=== PATIENT | female | born 1965 | race Caucasian/White ===

== ENCOUNTER 2017-01-28 05:24 | Day surgery (SDC) | payer BC, OTHER ==
[~2017-01-28] VITALS: Ht 160 cm; Wt 81.0 kg
[~2017-01-28 05:24] MED LIST: ASPI-496 PO; CALC600T4 PO; CHOL2000 PO; LEVO50TA PO; OMEG500C PO; SIMV20TA3 PO; TURM500C7 PO; UBID100C24 PO
[2017-01-28] MEDS ORDERED: LACTATED RINGERS 1,000 ML IV SCH (06:03)
[2017-01-28 06:05] VITALS: BP 124/83
[2017-01-28] MEDS ORDERED: BUPIVACAINE/PF-EPI 0.5% 1:200K ONE (06:22)
[2017-01-28] MEDS ORDERED: MIDAZOLAM 1 MG/ML, 2ML ONE (07:03)
[2017-01-28] MEDS ORDERED: FENTANYL PF 100 MCG/2ML ONE (07:03)
[2017-01-28] MEDS ORDERED: CEFAZOLIN 1,000 MG ONE (07:25)
[2017-01-28] MEDS ORDERED: ONDANSETRON 2MG/ML, 2ML ONE (07:25)
[2017-01-28] MEDS ORDERED: PROPOFOL 10 MG/ML, 20ML ONE (07:25)
[2017-01-28] MEDS ORDERED: KETOROLAC 30 MG/1 ML ONE (07:25)
[2017-01-28] MEDS ORDERED: LIDOCAINE/PF 1%, 30ML ONE (07:40)
[2017-01-28] MEDS ORDERED: ALBUTEROL SULFATE 2.5 MG/3 ML NPPB PRN (08:00)
[2017-01-28] MEDS ORDERED: ACETAMINOPHEN 325 MG TABLET PO PRN (08:00)
[2017-01-28] MEDS ORDERED: hydrALAzine 20 MG/ML, 1ML IV PRN (08:00)
[2017-01-28] MEDS ORDERED: OXYcodone 5 MG/5 ML ORAL.SOL UDC PO PRN (08:00)
[2017-01-28] MEDS ORDERED: ONDANSETRON 2MG/ML, 2ML IVPush PRN (08:00)
[2017-01-28] MEDS ORDERED: METOPROLOL 1 MG/ML, 5ML IV PRN (08:00)
[2017-01-28] MEDS ORDERED: PROMETHAZINE 25 MG/ML, 1ML IV PRN (08:00)
[2017-01-28] MEDS ORDERED: MIDAZOLAM 1 MG/ML, 2ML IV PRN (08:00)
[2017-01-28] MEDS ORDERED: HYDROcodone/APAP 7.5-325MG/15ML UDC PO PRN (08:00)
[2017-01-28] MEDS ORDERED: FENTANYL PF 100 MCG/2ML IV PRN (08:00)
[2017-01-28] MEDS ORDERED: EPHEDRINE 50 MG/ML, 1ML IVPush PRN (08:00)
[2017-01-28] MEDS ORDERED: LABETALOL 5MG/ML, 20ML IV PRN (08:00)
[2017-01-28] MEDS ORDERED: MEPERIDINE/PF 25MG/0.5ML IVPush PRN (08:00)
[2017-01-28] MEDS ORDERED: HYDROmorphone 1 MG/ML, 1ML IV PRN (08:00)
== END 2017-01-28 10:30 ==
LOC: OUT 05:24
PROVIDERS: ATTEND Orthopaedic Surgery
DX: M65.332 Trigger finger, left middle finger (principal); E03.9 Hypothyroidism, unspecified; Z88.0 Allergy status to penicillin
CPT/HCPCS: 26055; J0690; J1885; J2250; J2405; J2704; J3010; J3490; J7120